=== PATIENT | male | born 1955 | race African-American/Black ===

== ENCOUNTER 2018-09-08 02:52 | Emergency (ER) | payer MEDICAID ==
--- NOTE | 2018-09-08 03:36 | ED Physician Chart ---
ED Chief Complaint/HPI - Patient Information Date Seen:: 09/08/18 Time Seen:: 03:16 Chief Complaint:: chronic right hip pain History of Present Illness:: chronic right hip pain patient is leaving without being seen because he expressly told the nurse Chitra that he wanted shots for pain and he refused to undress to get into a hospital gown. Allergies:: Allergies Allergy/AdvReac Type Severity Reaction Status Date / Time No Known Allergies Allergy Verified 09/08/18 03:09 Vitals:: Vital Signs - 8 hr 09/08/18 03:16 Temp 98.0 F HR 97 RR 18 BP 155/96 O2 Sat % 97 Historian:: Patient Review:: Nurse's Note Reviewed ED Review of Systems - Review of Systems General/Constitutional: No fever, No chills, No weight loss, No weakness, No diaphoresis, No edema, No loss of appetite Skin: No skin lesions, No rash, No bruising Head: No headache, No light-headedness Eyes: No loss of vision, No pain, No diplopia ENT: No earache, No nasal drainage, No sore throat, No tinnitus Neck: No neck pain, No swelling, No thyromegaly, No stiffness, No mass noted Cardio Vascular: No chest pain, No palpitations, No PND, No orthopnea, No edema Pulmonary: No SOB, No cough, No sputum, No wheezing GI: No nausea, No vomiting, No diarrhea, No pain, No melena, No hematochezia, No constipation, No hematemesis G/U: No dysuria, No frequency, No hematuria Musculoskeletal: Bone or joint pain Endocrine: No polyuria, No polydipsia Psychiatric: No prior psych history, No depression, No anxiety, No suicidal ideation Hematopoietic: No bruising, No lymphadenopathy Allergic/Immuno: No urticaria, No angioedema Neurological: No syncope, No focal symptoms, No weakness, No paresthesia, No headache, No seizure, No dizziness, No confusion, No vertigo ED Past Medical History - Past Medical History Obtainable: Yes Past Medical History: Other (chronic right hip pain) Family Medical History - Family Member Mother Hx Family Hypertension: Yes Hx Family Diabetes: Yes ED Assessment - Assessment General Assessment: PATIENT LEFT THE EMERGENCY ROOM WITHOUT BEING SEEN SINCE HE REFUSED TO UNDRESS AND GET INTO A HOSPITAL GOWN FOR AN EXAMINATION. ED Septic Shock - . Is Septic Shock (SBP<90, OR Lactate>4 mmol\L) present?: No - <6hrs of presentation: Vital Signs: Vital Signs - 8 hr 09/08/18 03:16 Temp 98.0 F HR 97 RR 18 BP 155/96 O2 Sat % 97 ED Reassessment (Disposition) - Reassessment Reassessment Condition:: Unchanged - Aftercare/Follow up Instructions Aftercare/Follow-Up Instructions:: Refer to Discharge Instructions - Patient Disposition Discharge/Transfer:: LEFT WITHOUT BEING SEEN Condition at Disposition:: Stable, Unchanged
== END 2018-09-08 03:40 | disposition left against medical advice (07) ==
LOC: ER 02:52
DX: M25.551 Pain in right hip (principal); G89.29 Other chronic pain